=== PATIENT | female | born 1945 | race Caucasian/White ===

== ENCOUNTER 2024-06-23 15:16 | Inpatient (IN) | payer MEDICARE, BC, SELFPAY ==
[2024-06-23] VITALS (9 sets, daily range): BP systolic 126–174; BP diastolic 51–101; PULSE 61–73; RESP 16–18; TEMP 36.5; O2SAT 92–98; BMI 21.2; BMI 24.4
--- NOTE | 2024-06-23 15:18 | XRR_ITS ---
PROCEDURE INFORMATION: Exam: XR Chest Exam date and time: 06/23/2024 3:42 PM Age: 79 years old Clinical indication: Injury or trauma; Fall; Blunt trauma (contusions or hematomas) TECHNIQUE: Imaging protocol: Radiologic exam of the chest. Views: 2 views. COMPARISON: No relevant prior studies available. FINDINGS: Lungs: Minimal opacity in the lung bases may represent atelectasis or infiltrate. Minimal apical scarring. Pleural spaces: No evidence of a pneumothorax. Minimal blunting of the right costophrenic angle could suggest a small pleural effusion. Heart/Mediastinum: Normal size of the cardiac silhouette. Vasculature: There is atherosclerotic calcification within the aortic arch. Bones/joints: Scattered degenerative changes in the visualized spine. Partially imaged prior spinal fixation in the lumbar spine. XR/XR chest 2V* [id number] IMPRESSION: 1. Question small right pleural effusion. 2. Nonspecific linear areas of opacity in the lung bases could represent atelectasis or developing infiltrate. 3. Other chronic findings as above.
--- NOTE | 2024-06-23 15:30 | ECG_ITS ---
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: : 1945 Requested By: Cherie Hudson Order Number: [id number] Reading MD: CASSIE ROTH Measurements Intervals [place] Rate: 65 P: 69 TN: 203 QRS: 54 QRSD: 78 T: 66 QT: 403 QTc: 420 Interpretive Statements SINUS RHYTHM LOW QRS VOLTAGE IN PRECORDIAL LEADS [QRS DEFLECTION < 1.0 mV IN CHEST LEADS] POSSIBLE ANTERIOR MYOCARDIAL INFARCTION , PROBABLY OLD [30 ms Q WAVE IN V3/V4, OR R < 0.2 mV IN V4] No previous ECG available for comparison Electronically Signed On 06-24-2024 23:39:34 CDT by CASSIE ROTH [id number]
--- NOTE | 2024-06-23 17:06 | W.ED.FALL ---
HPI - Fall General: Chief Complaint: Fall Stated Complaint: fell, hit chest on nightstand Time Seen by Provider: 06/23/24 15:50 History of Present Illness: Patient was staying at hotel room, where the mattress was slightly off, when she rolled over to sit up yesterday am at 4am, she was off, due to the soft mattress, and fell forward from a lying position contusing her mid left sternum. She reports to the emergency room with increasing pain, difficulty taking deep breaths. No shortness of breath, chest pain. Associated symptoms-after fall: Reports chest pain (due to injury); Denies abdominal pain, confusion or headache(s) Related Data Allergies Allergy/AdvReac Type Severity Reaction Status Date / Time morphine Allergy ADR-Nausea Verified 06/23/24 15:34 ondansetron (From Zofran) Allergy ADR-Shakine Verified 06/23/24 15:34 ss Review of Systems General: Reports: 10 or more systems reviewed and unremarkable except in HPI and below Eyes: Denies: change in vision or blurry vision ENMT: Denies: tinnitus Card: Reports: chest pain (due to injury); Denies: dyspnea on exertion Resp: Denies: dyspnea, wheezing or chest congestion GI: Reports: nausea (due to pain); Denies: abdominal pain or vomiting Musc: Reports: muscle weakness; Denies: decrease in muscle mass or deformity Neuro: Denies: headache(s), numbness in extremities or confusion Endo: Denies: polyuria or tired all the time PFSH ED Supplemental [facility] Information: h/o hypothyroid, chronic pain; however does not use opioids on daily basis History of hardware in back x 8 surgeries. Physical Exam Const: COMMON NORMALS: patient oriented x3 HENMT: COMMON NORMALS: normocephalic and atraumatic HEAD & SCALP: normocephalic and atraumatic FACE & SINUS: normal facial exam Neck/C-Spine: COMMON NORMALS: full ROM and no lymphadenopathy Chest: COMMONS NORMALS: normal inspection of the chest (prior to palpation); negative for normal palpation of entire chest wall (pain on mid right and left of sternum) CHEST: Yes localized rib tenderness with anteroposterior compression (left of sternum) Location: 4th rib and Yes tenderness sternum (left 4th, right 5th rib) Resp: COMMON NORMALS: normal respiratory effort, No retractions and clear to auscultation bilaterally; negative for No use of accessory muscles EFFORT & INSPECTION: No able to speak in complete sentences, Yes symmetric chest movement, No abnormal respiratory pattern, No decreased respiratory effort and No grunting AUSCULTATION: clear to auscultation bilaterally GI: COMMON NORMALS: Normal to inspection, nondistended, normoactive bowel sounds present, Soft to palpation and non-tender PALPATION: Yes Soft to palpation : COMMON NORMALS: Yes no CVA tenderness BLADDER/KIDNEY EXAM: Yes no CVA tenderness Back/Pelvis: COMMON NORMALS: no CVA tenderness and thoracic and lumbar spine normal to inspection Extremity: COMMON NORMALS: normal to inspection and full ROM Neuro: COMMON NORMALS: patient oriented x3, CN's II-XII intact bilaterally and moves all extremities Psych: COMMON NORMALS: Normal thought process present ATTITUDE: Yes calm THOUGHT PROCESS: Normal thought process present JUDGEMENT: Good judgement present (Psych) OTHER: upon ambulation, screams in pain due to sternal pain Skin: COMMON NORMALS: no rashes or lesions noted and no wounds GENERAL SKIN EXAM: no rashes or lesions noted Course ED course: Patient is a 79-year-old female with notable sternal fracture on CT of the chest. This was caused after rolling into bedside table without fall. Injury was direct blow to bedside table next to bed at [facility]. This occurred yesterday early a.m. I am unable to get patient's pain in control. I am going to ask hospitalist for consultation for possible observation for pain control. I do not see any reason to discuss with trauma surgery/trauma services since patient has not had a trauma, and mainly needs pain control. Reevaluation(s): Reevaluation #1: 1929: Repeated fentanyl. Patient continues to have pain. Reevaluation #2: 2039: Ordered Percocet 10/325. Patient continues to have pain. Consultations: Consultation #1: D/w Hospitalist, admit inpt Vital Signs: Vital signs: Vital Signs Temperature 97.7 F 06/23/24 15:17 Pulse Rate 73 06/23/24 20:57 Respiratory Rate 16 06/23/24 20:57 Blood Pressure 158/91 06/23/24 20:57 Pulse Oximetry 96 06/23/24 20:57 Oxygen Delivery Me thod Room Air 06/23/24 18:11 MDM - Fall Medical Decision Making Patient is a pleasant 79-year-old female with history of hypothyroidism, on replacement, occasional back pain due to multiple hardware/back surgery x 8 that presents with severe left sternal chest discomfort related to a contusion in this exact spot. Initial chest x-ray is abnormal showing pleural effusion. I cannot discern fracture. Will expand workup to CT after routine labs to assess renal function. Will also check urine analysis to assess stability/association of pyuria. Patient was continuing to struggle with pain control despite fentanyl x 2. She was also given oxycodone 10/325 acetaminophen. Given these concerns, I did discuss with hospitalist on, Dr. Sen regarding pain control. Hospitalist would like her for inpatient, since they do not believe she would have pain control after overnight admission. Differential Diagnosis Likely compression fracture; Unlikely concussion with loss of consciousness or concussion without loss of consciousness Lab Data mildly low sodium, otherwise unremarkable 06/23/24 18:28 06/23/24 18:28 Radiology Impressions Chest X-Ray 06/23/24 15:18 IMPRESSION: 1. Question small right pleural effusion. 2. Nonspecific linear areas of opacity in the lung bases could represent atelectasis or developing infiltrate. 3. Other chronic findings as above. Chest CT 06/23/24 17:54 IMPRESSION: 1. Depressed fracture involving the anterior and posterior cortex of the mid body of the sternum with cortical break anteriorly and plastic fracture posteriorly. 2. Soft tissue contusion anterior to the mid sternal fracture. Laboratory Results WBC 7.81 10^3/uL (3.29-11.43) 06/23/24 18: RBC 4.02 10^6/uL (3.85-5.65) 06/23/24 18: Hgb 12.80 g/dL (11.27-16.99) 06/23/24 18: Hct 38.9 % (36-47) 06/23/24 18: MCV 96.8 fl (85-98) 06/23/24 18: MCH 31.8 pg (27-33) 06/23/24 18: MCHC 32.9 g/dL (30-55) 06/23/24 18: RDW 12.7 % (12.1-15.1) 06/23/24 18: Plt Count 196 10^3/cmm (157-399) 06/23/24 18: MPV 10.0 fL (7.4-10.4) 06/23/24 18: Neut % (Auto) 57.6 % 06/23/24 18: Lymph % (Auto) 28.0 % 06/23/24 18: Morrison % (Auto) 10.0 % 06/23/24 18: Eos % (Auto) 3.2 % 06/23/24 18: Baso % (Auto) 0.9 % 06/23/24 18: Neut # (Auto) 4.50 10^3/uL (1.8-7.7) 06/23/24 18: Lymph # (Auto) 2.2 10^3/uL (0.8-4.8) 06/23/24 18: Morrison # (Auto) 0.8 10^3/uL (0.2-0.9) 06/23/24 18: Eos # (Auto) 0.3 10^3/uL (0.0-0.8) 06/23/24 18: Baso # (Auto) 0.1 10^3/uL (0.0-0.1) 06/23/24: Nucleated RBC % (auto) 0 % 06/23/24 Nucleated RBCs # 0.0 /100WBC 06/23/24 18: Sodium 134 mmol/L (136-145) L 06/23/24: Potassium 3.9 mmol/L (3.5-5.1) 06/23/24: Chloride 99 mmol/L (98-107) 06/23/24 18: Carbon Dioxide 25 mmol/L (22-29) 06/23/24 18: Anion Gap 13.9 (5-19) 06/23/24 18: BUN 18 mg/dL (8-23) 06/23/24: Creatinine 0.7 mg/dL (0.5-0.9) 06/23/24 18: GFR Calculation Not Reportable 06/23/24 18 Glucose 89 mg/dL (65-115) 06/23/24 18: Calculated Osmolality 279 mOsm/kg (285-295) L 06/23/24 18:28 Calcium 9.0 mg/dL (8.5-10.5) 06/23/24 18: Total Bilirubin 0.3 mg/dL (0.15-1.2) 06/23/24 18:28 AST 18 U/L (0-32) 06/23/24 18: ALT 16 U/L (0-33) 06/23/24 18: Alkaline Phosphatase 69 U/L (35-105) 06/23/24 18: Total Protein 6.1 g/dL (6.6-8.7) L 06/23/24 18: Albumin 4.1 g/dL (3.5-5.2) 06/23/24 18: Globulin 2.0 g/dL (1.3-4.6) 06/23/24 18:28 Urine Color Yellow (Yellow) 06/23/24 18:07 Urine Appearance Clear (CLEAR) 06/23/24 18:07 Urine pH 6.5 (5-7) 06/23/24 18:07 Ur Specific [place] 1.012 (1.005-1.030) 06/23/24 18:07 Urine Protein Negative (Negative) 06/23/24 18:07 Urine Glucose (UA) Negative (Normal) 06/23/24 18:07 Urine Ketones Negative (Negative) 06/23/24 18:07 Urine Blood Negative (Negative) 06/23/24 18:07 Urine Nitrate Negative (Negative) 06/23/24 18:07 Urine Bilirubin Negative (Negative) 06/23/24 18:07 Urine Urobilinogen 0.2 mg/dL (Negative) 06/23/24 18:07 Ur Leukocyte Esterase Negative (Negative) 06/23/24 18:07 Urine RBC 0-2 /hpf (0-2) 06/23/24 18:07 Urine WBC 0-5 /hpf (0-5) 06/23/24 18:07 Ur Squamous Epith Cells 0-5 /hpf (0-5) 06/23/24 18:07 Amorphous Sediment Not Reportable 06/23/24 18:07 Urine Bacteria None seen /hpf (NONE) 06/23/24 18:07 Hyaline Casts 0-4 /lpf H 06/23/24 18:07 XR interpretation done by ED provider, pending radiology final review ED provider radiology interpretation(s): pleural effusion right, chronic changes ct sshows sternal fracture Discharge Plan Discharge Patient Disposition: Admitted As Inpatient Admit Provider: Magalie Li Clinical Impression: Sternal fracture Condition: Stable Coding Level of Care Code ED Sales And Service Officer for Terrance Harley
--- NOTE | 2024-06-23 17:54 | CTR_ITS ---
PROCEDURE INFORMATION: Exam: CT Chest With Contrast; Diagnostic Exam date and time: 06/23/2024 7:23 PM Age: 79 years old Clinical indication: Injury or trauma; Fall; Blunt trauma (contusions or hematomas); Additional info: Blunt chest trauma, abnormal xray TECHNIQUE: Imaging protocol: Diagnostic computed tomography of the chest with contrast. Radiation optimization: All CT scans at this facility use at least one of these dose optimization techniques: automated exposure control; mA and/or kV adjustment per patient size (includes targeted exams where dose is matched to clinical indication); or iterative reconstruction. Contrast material: OMNI 350; Contrast volume: 100 ml; Contrast route: INTRAVENOUS (IV); COMPARISON: CR XR chest 2V* [id number] 06/23/2024 3:42 PM RADIATION DOSE METRICS: Total DLP (mGy-cm): 208.02 FINDINGS: Lungs: Bibasilar discoid atelectasis and/or scarring. Pleural spaces: Bilateral apical pleural and/or parenchymal scarring. Heart: Unremarkable. No cardiomegaly. No pericardial effusion. Lymph nodes: Unremarkable. No enlarged lymph nodes. Vasculature: Calcification of the thoracic aorta and/or great vessels consistent with atherosclerotic vessel disease. Liver: Single hepatic cyst measuring > 1.0 cm. Bones/joints: Depressed fracture involving the anterior and posterior cortex of the mid body of the sternum with cortical break anteriorly and plastic fracture posteriorly. Soft tissues: Bilateral retropectoral saline breast implants. Soft tissue contusion anterior to the mid sternal fracture Other findings: Postoperative changes over the lumbar spine with metallic fixation and metallic artifact. CT/CT chest w con* [id number] IMPRESSION: 1. Depressed fracture involving the anterior and posterior cortex of the mid body of the sternum with cortical break anteriorly and plastic fracture posteriorly. 2. Soft tissue contusion anterior to the mid sternal fracture.
[2024-06-23] MEDS: fentaNYL 50 mcg/mL INJ 2mL IVP ×2 (18:03→19:39)
[2024-06-23 18:17] LABS: Bilirubin Urine Negative (Negative); Blood Urine Negative (Negative); Glucose Urine UA Negative (Normal); Ketones Urine Negative (Negative); Leukocyte Esterase Urine Negative (Negative); Nitrate Urine Negative (Negative); Protein Urine Negative (Negative); Specific Gravity, Urine 1.012 (1.005-1.030); Urine Appearance Clear (CLEAR); Urine Color Yellow (Yellow); Urobilinogen Urine 0.2 mg/dL (Negative); pH Urine 6.5 (5-7)
[2024-06-23 18:23] LABS: Add Urine Microscopic? YES; Bacteria Urine None Seen /hpf; Hyaline Casts Urine 0-4 /lpf; RBC Urine 0-2 /hpf (0-2); Squamous Epithelial Cell Urine 0-5 /hpf (0-5); WBC Urine 0-5 /hpf (0-5)
[2024-06-23 18:45] LABS: Basophils # 0.1 10^3/uL (0.0-0.1); Basophils % 0.9 %; Eosinophils # 0.3 10^3/uL (0.0-0.8); Eosinophils % 3.2 %; Hematocrit 38.9 % (36-47); Lymphocytes # 2.2 10^3/uL (0.8-4.8); Mean Corpuscular HGB Conc 32.9 g/dL (30-55); Mean Corpuscular Hemoglobin 31.8 pg (27-33); Mean Corpuscular Volume 96.8 fl (85-98); Monocytes # 0.8 10^3/uL (0.2-0.9); Neutrophils % 57.6 %; Nucleated Red Blood Cells % 0 %; Platelet Count 196 10^3/cmm (157-399); Red Blood Count 4.02 10^6/uL (3.85-5.65); Red Cell Distribution Width 12.7 % (12.1-15.1); White Blood Count 7.81 10^3/uL (3.29-11.43)
[2024-06-23 19:13] LABS: Alanine Aminotransferase 16 U/L (0-33); Albumin Level 4.1 g/dL (3.5-5.2); Alkaline Phosphatase 69 U/L (35-105); Anion Gap 13.9 (5-19); Aspartate Amino Transferase 18 U/L (0-32); Blood Urea Nitrogen 18 mg/dL (8-23); Carbon Dioxide 25 mmol/L (22-29); Chloride 99 mmol/L (98-107); Creatinine Clr Calc Pharmacy 47.9004; Glucose 89 mg/dL (65-115); Osmolality Calculated 279 mOsm/kg (285-295); Potassium 3.9 mmol/L (3.5-5.1); Sodium 134 mmol/L (136-145); Total Bilirubin 0.3 mg/dL (0.15-1.2); Total Protein 6.1 g/dL (6.6-8.7)
[2024-06-23] MEDS: iohexol 350 mg/mL 500 mL Btl (per mL) IV (19:30)
[2024-06-23] MEDS: diphenhydrAMINE 50 mg/mL SDV 1mL 12.5 MG IVP (19:42)
[2024-06-23] MEDS: oxyCODONE-APAP 10-325 mg Tablet 1 TAB PO (20:56)
--- NOTE | 2024-06-23 21:01 | P.HP_ITS ---
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 The patient lives in [facility]. She & her were travelling from [place], [place] to [place] to see family (children and grand children), who live in [place]. She spent the night in a motel in [place]. She states that around 4am, she had to get out of bed really fast b/c she had a Charley horse. As she tried to get out of bed, the mattress became nothing and pushed her into the corner of the night stand, which was pointy, such that she screamed. She states that they arrived at [place] around 3pm on 06/23/2024, but the pain in her chest worsened throughout the day so she came in. SHe states that she thinks that she normally gets Charley horses b/c she has been exercising her legs to regain her strength since, she has had 5 back surgeries in the last 4.5yrs. In the ED, her CXR showed concern for a possible small R. Pleural effusion, with concern for atelectasis vs infiltrate in the lung bases. A CT chest with IV contrast was done that showed a fracture in the sternum. The patient was given fentanyl 50 mcg x 2, Benadryl 12.5 mg IVP x 1, and admitted for intractable pain. Review of Systems 2 Const: Reports: diaphoresis; Denies: fever(s) or chills Eyes: Denies: change in vision ENMT: Denies: odynophagia, ear or mastoid pain, ear discharge, nasal discharge or nasal congestion Card: Reports: lightheadedness; Denies: chest pain, palpitations or syncope Resp: Denies: dyspnea, productive cough or wheezing GI: Reports: nausea (due to opiates) and constipation (chronic); Denies: abdominal pain, vomiting, diarrhea, change in stool character or hematochezia : Reports: urinary urgency (chronic 5 years); Denies: urinary frequency Musc: Reports: joint pain (sternal pain) Skin/Breast: Denies: rash or new lesions Neuro: Denies: headache(s) or dizziness Psych: Denies: anxiety, depression, suicidal ideation or homicidal ideation Endo: Reports: cold intolerance; Denies: heat intolerance Enrike/Lymph: Denies: easy bruising or easy bleeding Medications/Allergies Allergies Allergy/AdvReac Type Severity Reaction Status Date / Time morphine Allergy ADR-Nausea Verified 06/23/24 15:34 ondansetron (From Zofran) Allergy ADR-Shakine Verified 06/23/24 15:34 ss oxycodone Allergy ADR-Nausea Verified 06/24/24 02:08 PFSH Acute 2 PFSH: Medical History (Updated 06/24/24 @ 07:01 by Magalie Li MD) Hearing loss of both ears L>R hearing loss due to repeated childhood ear infections. 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 S/p laser surgery which improved her hearing, but she wears hearing aids. Surgical History (Updated 06/24/24 @ 01:44 by Magalie Li MD) History of surgery on lower extremity Left quadricep tendon repair due to tear. History of total right knee replacement Hx of appendectomy History of hysterectomy with bilateral oophorectomy done in 3 stages. Hysterectomy was done first because it was tipped. . ovary was removed due to cyst in 2nd stage. remaining ovary removed in 3rd stage. 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 Family History (Updated 06/24/24 @ 01:51 by Magalie Li MD) Mother Congestive heart failure (CHF) Social History (Updated 06/24/24 @ 01:47 by Magalie Li MD) Smoking and tobacco/nicotine status: former use of tobacco/nicotine Alcohol intake: current Alcohol intake frequency: holidays/special occasions only Substance/Drug Use: current Substance/Drug use frequency: other Other substance/drug use details: tried THC once. Additional social history: smoked 1ppd from age 18 for 15 years. Vitals/I&O/Wt Last Vital Signs Temp 97.7 F 06/23/24 15:17 Pulse 73 06/23/24 20:57 Resp 16 06/23/24 20:57 BP 158/91 06/23/24 20:57 Pulse Ox 96 06/23/24 20:57 O2 Del Method Room Air 06/23/24 18:11 06/23/24 06/23/24 06/23/24 06:59 14:59 22:59 Intake Total 0 / 0 Balance 0 / 0 Weight last 48 hrs Weight 54.431 kg Physical Exam 2 Const: GENERAL APPEARANCE: cooperative and comfortable O RIENTATION/CONSCIOUSNESS: Yes awake, Yes oriented to person, Yes oriented to place and Yes oriented to time HENMT: HEAD & SCALP: normocephalic and atraumatic NOSE: Normal external nose present EXTERNAL EAR: Yes external ears normal MOUTH: Normal oral and palatal mucosa present THROAT: posterior oropharynx normal Eye: CONJUNCTIVA: Yes conjunctivae normal PUPIL: No Equal, round and reactive pupils present EOM: No EOM abnormal Neck/C-Spine: GENERAL: Yes normal visual inspection and Yes trachea midline THYROID: Thyroid normal CAROTIDS: No bruit CERVICAL SPINE: Yes cervical ROM normal Lymph: OTHER: no cervical or supraclavicular LAD Resp: OTHER: CTAB w/ no w/r/r. pleuritic chest pain on deep inspiration. Cardio: OTHER: RRR, no m/r/g or clicks. Placing the stethoscope on her RUSB, her LUSB and LLSB caused chest pain. GI: OTHER: BS+, NT, ND, no guarding, no rigidity, no rebound tenderness, no hepatosplenomegaly. Extremity: GENERAL: No clubbing, No cyanosis and No edema Neuro: CRANIAL NERVES: Yes CN normal except as noted SPEECH: speech normal GAIT: Yes Normal gait present (I saw her walk to the bathroom. ) SENSORY EXAM: No sensory level loss detected MOTOR EXAM: 5/5 motor strength present throughout and Normal motor muscle tone present throughout Psych: APPEARANCE: Yes grossly normal ATTITUDE: Yes calm and Yes engaged SPEECH: Yes normal speech MOOD & AFFECT: Yes euthymic mood THOUGHT PROCESS: Normal thought process present THOUGHT CONTENT: Yes Normal thought content present ATTENTION/CONCENTRATION: Yes attention grossly intact M BREANN/COGNITION: Yes memory grossly intact Skin: GENERAL SKIN EXAM: no rashes or lesions noted Data 06/24/24 04:47 06/24/24 04:47 A&P Assessment and plan (1) Sternal fracture: (2) Intractable pain: Plan Mirna Post is a 79 year old female w/ 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 The patient sustained a fracture in her sternum as noted on CT Chest w/ IV contrast. #Intractable pain due to Fracture of the Sternum - She responded well to the dose of Dilaudid but sleeps easily. [place] ordered as well as antiemetics. Continues to monitor pain levels. Counseled patient not to let her pain get to attend before asking for pain medications. - Consider consulting or speaking with anesthesiologist on-call, to see if it is possible for the patient to benefit from an anesthetic bupivacaine etc. - 1L NS @ 250cc/hr administered on admission. Continued w/ NS at 75cc/hr. #Fracture of the sternum #Fall - Defer to day hospitalist to Consult Orthopedic surgery - incentive spirometry. #Chronic constipation - Miralax and senna scheduled. DVT ppx: Lovenox PDMP PDMP Reviewed: Not Reviewed Attestations 2 Medical Necessity Statement*: The patient will need to be hospitalized for greater than 2 midnights for pain control due to intractable pain caused by a fall that resulted in an acute fracture of the sternum. Coding Level of Care Code 47954 High Time for a total of 76 minutes, includes reviewing past or interval history, examining/interviewing patient, placing orders, counseling patient/family/other support, updating patient/family/other support, discussing plan of care with staff, communicating with other healthcare providers, documenting encounter and coordinating care Diagnoses Sternal fracture S22.22XA Encounter type: initial encounter Fracture type: closed Sternal location: body of sternum Intractable pain R52
[2024-06-23 23:11] LABS: INR 0.93 (0.8-1.2); Partial Thromboplastin Time 24.7 SECONDS (23.9-36.7)
[2024-06-23] MEDS: sodium chloride 0.9% 1,000 ML 65 ML IV (23:11)
--- NOTE | 2024-06-23 23:35 | PC.NURSE ---
Report called to Lucy MATHIAS on MS. All questions and concerns were addressed at time of report.
[2024-06-24] VITALS (8 sets, daily range): BP systolic 121–140; BP diastolic 56–78; PULSE 59–75; RESP 13–18; TEMP 36.6–36.8; O2SAT 91–94
[2024-06-24] MEDS: HYDROmorphone 0.5 MG/0.5 ML INJ IVP ×2 (00:37→09:55)
[2024-06-24] MEDS: HYDROcodone-acetaminophen 5-325 mg Tablet 1 TAB PO ×2 (05:10→09:12)
[2024-06-24 05:17] LABS: Basophils # 0.1 10^3/uL (0.0-0.1); Basophils % 0.9 %; Eosinophils # 0.2 10^3/uL (0.0-0.8); Eosinophils % 2.9 %; Hematocrit 34.2 % (36-47); Lymphocytes # 1.6 10^3/uL (0.8-4.8); Lymphocytes % 23.4 %; Mean Corpuscular HGB Conc 32.5 g/dL (30-55); Mean Corpuscular Hemoglobin 32.5 pg (27-33); Mean Platelet Volume 9.9 fL (7.4-10.4); Monocytes # 0.9 10^3/uL (0.2-0.9); Monocytes % 13.4 %; Neutrophils # 4.03 10^3/uL (1.8-7.7); Neutrophils % 59.3 %; Nucleated Red Blood Cells % 0 %; Platelet Count 171 10^3/cmm (157-399); Red Blood Count 3.42 10^6/uL (3.85-5.65); Red Cell Distribution Width 12.9 % (12.1-15.1)
[2024-06-24 05:38] LABS: Anion Gap 14.1 (5-19); Blood Urea Nitrogen 14 mg/dL (8-23); Calcium 8.4 mg/dL (8.5-10.5); Carbon Dioxide 22 mmol/L (22-29); Chloride 106 mmol/L (98-107); Creatinine Clr Calc Pharmacy 50.8404; Glucose 101 mg/dL (65-115); Magnesium 1.8 mg/dL (1.7-2.3); Osmolality Calculated 287 mOsm/kg (285-295); Phosphorus 3.6 mg/dL (2.5-4.5); Potassium 4.1 mmol/L (3.5-5.1); Sodium 138 mmol/L (136-145)
[2024-06-24] MEDS: sodium chloride 0.9% 1,000 ML 75 ML IV (06:01)
[2024-06-24] MEDS: sennosides 8.6 mg Tablet 17.2 MG PO (09:12)
[2024-06-24] MEDS: polyethylene glycol 3350 Pkt 17 gm PO (09:12)
[2024-06-24] MEDS: prochlorperazine 10 mg Tablet PO ×3 (09:55→19:10)
--- NOTE | 2024-06-24 11:10 | PC.CHAP ---
Pastoral Care Encounter/Spiritual Assessment Type of Contact [] Declined tire rebuilder visit [] Patient/Family/Request visit [] Outpatient visit [] Follow-up visit [] Physician referral [] Code/Alert [x] Routine visit [] Staff referral [] Actively dying [] Patient sleeping [x] Family support [] [] Out of room [] Palliative care [] [] Receiving care in room [] Pre-surgical visit [] Trauma [] Long length of stay [] ICU visit [] Other: Relational/Emotional Strength [x] Patient feels connected with others/family/visitors/staff [] Distress [] Loneliness/isolation [] Abandonment Spirituality of Patient [x] Person of Mai [] Attends Scientology of their Mai [x] Believes in Prayer [] Reads Bible or Rastafarian materials [] There are Spiritual issues to be addressed Intermediate Card Tender Interventions [x] Prayer [] Active listening [] Non-anxious presence [x] Spiritual/emotional support [] Crisis/trauma care [] Spiritual counseling [] Bereavement support [] Provided bereavement packet [] Provided Bible/devotional materials [] Provided toy/stuffed animal, coloring book to patient or family member [] Provided Communion [] Anointing/[place] [] Salvation [x] Completed spiritual assessment [] Other: Impact on Illness or Injury [] Angry [] Fearful [] Anxious [] Often cries [] Exhaustion [] Unable to work [] Unable to attend caodaism [] Unable to walk/stand [] Unable to read [] Unable to drive [] Unable to eat/drink [] Unable to sleep [] Unable to be with family [] Patient intubated [] Other: Summary Time spent with patient 5 min
[2024-06-24] MEDS: lactulose oral liq 20 gm/30 mL UDC 30 GM PO (12:06)
[2024-06-24] MEDS: lidocaine 5% Patch 1 PATCH TOPICAL (12:27)
[2024-06-24] MEDS: ketorolac 30 mg/mL INJ 15 MG IVP ×2 (12:28→18:28)
[2024-06-24] MEDS: HYDROmorphone 0.5 MG/0.5 ML INJ 1 MG IVP ×3 (14:27→23:20)
--- NOTE | 2024-06-24 14:27 | USCV_ITS ---
Mirna Post Age: 79 Gender: F : 1945 Exam Date: 06/24/2024 15:11 Ordering Phys: Jocelyne Duvall MD Technologist: [place] [facility] [place] chest trauma fx stermum BP: 123 / 73 HR: 67 Rhythm: Sinus Technical Quality: Adequate MEASUREMENTS (Male / Female) Normal Values 2D ECHO LV Diastolic Diameter PLAX 3.4 cm 4.2 - 5.9 / 3.9 - 5.3 cm IVS Diastolic Thickness 1.1 cm 0.6 - 1.0 / 0.6 - 0.9 cm IVS Systolic Thickness 1.4 cm LVPW Diastolic Thickness 1.2 cm 0.6 - 1.0 / 0.6 - 0.9 cm LVPW Systolic Thickness 1.6 cm LVOT Diameter 2.0 cm LV Ejection Fraction 2D Teich 65.3 % LV Ejection Fraction MOD 4C 67.8 % LV Ejection Fraction MOD 2C 58.9 % LV Ejection Fraction 2C AL 57.1 % LA Diameter 2.7 cm RA Systolic Volume 4C AL 26.6 ml RA Systolic Volume 4C MOD 25.5 ml Aorta at Sinotubular Diameter 2.7 cm M-MODE LA Ao Ratio MM 1.0 AV Cusp Separation MM 2.0 cm DOPPLER AV Peak Velocity 112.0 cm/s LVOT Peak Velocity 97.0 cm/s AV Area Cont Eq vti 3.0 cm squared AV Area Cont Eq pk 2.8 cm squared MV Peak Velocity 90.0 cm/s MV Area PHT 5.5 cm squared Mitral E to A Ratio 0.9 TV Peak Velocity 171.5 cm/s TR Peak Velocity 186.0 cm/s TR Peak Gradient 13.8 mmHg TV Peak E Velocity 106.0 cm/s PV Peak Velocity 85.0 cm/s FINDINGS Left Ventricle Normal left ventricular size, systolic function and wall thickness, with no regional wall motion abnormalities. Left ventricular ejection fraction is estimated at 60 %. Grade I/IV diastolic dysfunction (abnormal relaxation filling pattern), normal to mildly elevated filling pressures. Right Ventricle The right ventricle is normal in size and function. Right Atrium The right atrium is normal in size. Left Atrium The left atrium is normal in size. Mitral Valve Mildly thickened mitral valve. No mitral valve stenosis. Trace mitral valve regurgitation. Aortic Valve Structurally normal aortic valve without significant sclerosis or stenosis. There is trace aortic regurgitation. Tricuspid Valve Structurally normal tricuspid valve without significant stenosis or regurgitation. Pulmonary artery systolic pressure is normal. Pulmonic Valve Mild pulmonary valve regurgitation. Pericardium Normal pericardium without effusion. Aorta Normal ascending aorta dimension. IVC The inferior vena cava appears normal. CONCLUSIONS Normal left ventricular size, systolic function and wall thickness, with no regional wall motion abnormalities. Left ventricular ejection fraction is estimated at 60 %. Grade I/IV diastolic dysfunction (abnormal relaxation filling pattern), normal to mildly elevated filling pressures. Mildly thickened mitral valve. No mitral valve stenosis. Trace mitral valve regurgitation. Structurally normal aortic valve without significant sclerosis or stenosis. There is trace aortic regurgitation. There is no pericardial effusion. Right atrial pressure is around 5 mm of mercury. Oksana Mendoza MD (Electronically Signed) Final Date: 24 Jun 2024 21:07 S
--- NOTE | 2024-06-24 14:53 | P.PN_ITS ---
Subjective 2 Subjective: Present H&P reviewed. Patient states she hurt her chest wall after she hit it against the corner of a nightstand in her hotel room. Pain is not well- controlled today. Medications: Reviewed: Yes Vitals/I&O/Wt Last Vital Signs Temp 98 F 06/24/24 11:50 Pulse 67 06/24/24 14:41 Resp 17 06/24/24 11:50 BP 129/74 06/24/24 14:41 Pulse Ox 94 06/24/24 11:50 O2 Del Method Room Air 06/24/24 11:50 06/23/24 06/24/24 06/24/24 22:59 06:59 14:59 Intake Total 0 / 0 1120.000 / 1120.000 680 / 680 Balance 0 / 0 1120.000 / 1120.000 680 / 680 Weight last 48 hrs Weight 60.328 kg Weight 62.596 kg Weight 54.431 kg Physical Exam 2 Narrative: General: No acute distress, AO x3 HEENT: PERRLA, pupils bilaterally equal and reactive, pallors not present Chest: Normal vesicular breath sounds, no added sounds, equal good air entry bilaterally CVS: S1-S2 regular, no murmurs, no tachycardia, no gallops, no rubs Abdomen: Soft, nontender, no organomegaly, bowel sounds present Neuro: No focal deficits, no facial deformity, AO x3, power 5/5 in all limbs Data 06/24/24 04:47 06/24/24 04:47 A&P Assessment and plan (1) Sternal fracture: (2) Intractable pain: Plan Mirna Post is a 79 year old female w/ 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 The patient sustained a fracture in her sternum as noted on CT Chest w/ IV contrast. #Intractable pain due to Fracture of the Sternum - She responded well to the dose of Dilaudid but sleeps easily. [place] ordered as well as antiemetics. Continues to monitor pain levels. Counseled patient not to let her pain get to attend before asking for pain medications. - Consider consulting or speaking with anesthesiologist on-call, to see if it is possible for the patient to benefit from an anesthetic bupivacaine etc. - 1L NS @ 250cc/hr administered on admission. Continued w/ NS at 75cc/hr. #Fracture of the sternum #Fall - Defer to day hospitalist to Consult Orthopedic surgery - incentive spirometry. #Chronic constipation - Miralax and senna scheduled. DVT ppx: Lovenox June 24, 2024 Overnight labs and H&P reviewed. Patient is traveling through this area to visit her children. She lives in [place]. She was in a hotel where she fell and hit her chest wall against the nightstand. CT of the chest shows D epressed fracture involving the anterior and posterior cortex of the mid body of the sternum with cortical break anteriorly and plastic fracture posteriorly. Soft tissue contusion anterior to the mid sternal fracture. Case was discussed with orthopedics on-call, no surgical intervention indicated for now. Patient is not amenable to any splinting. Medical management with pain control recommended as the fracture heals over the next 12 weeks. Currently pain is not under control. We do not have the capability to do inpatient nerve blocks with anesthesia as an inpatient. Currently will optimize pain management with Dilaudid 1 mg IV every 4 hours as needed, hydrocodone APAP 1 tab p.o. every 4 hours as needed, closely monitor for any respiratory depression.. Additionally apply lidocaine patch and add opiate sparing therapy with Toradol 15 mg IV every 6 hours. Patient states she has taken oxycodone in the past and tolerated it well with her back surgeries. Echocardiogram to rule out any underlying pericardial contusion or effusions. Resume home dose of levothyroxine PDMP PDMP Reviewed: Not Reviewed Attestations 2 Medical Necessity Statement*: Uncontrolled pain resulting from sternal fracture. Needs optimization of pain medications Coding Level of Care Code Acute Code for Chg Fwd Diagnoses Sternal fracture S22.22XA Encounter type: initial encounter Fracture type: closed Sternal location: body of sternum Intractable pain R52
[2024-06-24 15:51] LABS: Troponin T (5th) Once 8 ng/L (0-10)
[2024-06-24] MEDS: enoxaparin 30 mg/0.3 mL Syringe SUBCUT (19:59)
[2024-06-25 01:33] VITALS: BP 124/64; PULSE 76; RESP 15; TEMP 36.6; O2SAT 94
[2024-06-25 05:29] VITALS: BP 139/71; PULSE 70; RESP 16; TEMP 36.7; O2SAT 93
[2024-06-25 05:42] LABS: Basophils # 0.1 10^3/uL (0.0-0.1); Basophils % 1.2 %; Eosinophils # 0.3 10^3/uL (0.0-0.8); Eosinophils % 4.8 %; Hematocrit 37.2 % (36-47); Lymphocytes % 29.8 %; Mean Corpuscular Hemoglobin 32.3 pg (27-33); Mean Corpuscular Volume 101.1 fl (85-98); Mean Platelet Volume 10.1 fL (7.4-10.4); Monocytes # 0.9 10^3/uL (0.2-0.9); Monocytes % 13.4 %; Neutrophils # 3.41 10^3/uL (1.8-7.7); Neutrophils % 50.7 %; Nucleated Red Blood Cells % 0 %; Platelet Count 145 10^3/cmm (157-399); Red Blood Count 3.68 10^6/uL (3.85-5.65); Red Cell Distribution Width 13.2 % (12.1-15.1); White Blood Count 6.72 10^3/uL (3.29-11.43)
[2024-06-25 06:00] LABS: Alanine Aminotransferase 14 U/L (0-33); Albumin Level 3.4 g/dL (3.5-5.2); Alkaline Phosphatase 62 U/L (35-105); Anion Gap 11.4 (5-19); Aspartate Amino Transferase 22 U/L (0-32); Blood Urea Nitrogen 12 mg/dL (8-23); Calcium 8.9 mg/dL (8.5-10.5); Carbon Dioxide 26 mmol/L (22-29); Chloride 103 mmol/L (98-107); Creatinine Clr Calc Pharmacy 50.0237; Globulin 2.3 g/dL (1.3-4.6); Glucose 90 mg/dL (65-115); Osmolality Calculated 281 mOsm/kg (285-295); Potassium 4.4 mmol/L (3.5-5.1); Sodium 136 mmol/L (136-145); Total Bilirubin 0.4 mg/dL (0.15-1.2); Total Protein 5.7 g/dL (6.6-8.7)
[2024-06-25 08:02] VITALS: BP 154/77; PULSE 75; RESP 18; TEMP 36.6; O2SAT 91
[2024-06-25 08:42] VITALS: BP 154/77; PULSE 75; RESP 18; TEMP 36.6
--- NOTE | 2024-06-25 09:05 | DCPLANNER ---
Awaiting meds to beds and outpatient pharmacy made aware at [phone].
[2024-06-25] MEDS: lidocaine 5% Patch 1 PATCH TOPICAL (09:23)
[2024-06-25] MEDS: polyethylene glycol 3350 Pkt 17 gm PO (09:24)
[2024-06-25] MEDS: sennosides 8.6 mg Tablet 17.2 MG PO (09:24)
[2024-06-25] MEDS: levothyroxine 25 mcg Tablet PO (09:24)
[2024-06-25] MEDS: ketorolac 30 mg/mL INJ 15 MG IVP (09:24)
[2024-06-25 11:24] VITALS: BP 144/78; PULSE 69; RESP 17; TEMP 36.7; O2SAT 91
[2024-06-25 12:54] VITALS: BP 144/78; PULSE 69; RESP 17; TEMP 36.7; O2SAT 91
--- NOTE | 2024-06-25 16:06 | PM.DCS ---
Discharge Providers Date of Admission: 06/23/24 21:46 Date of Discharge: June 25, 2024 Attending Provider at Admission: Magalie Li MD Attending Provider at Discharge: Jocelyne Duvall MD Diagnoses at Discharge Discharge Diagnosis (1) Sternal fracture: Status: Acute Qualifiers: Encounter type: initial encounter Fracture type: closed Sternal location: body of sternum Qualified Code(s): S22.22XA - Fracture of body of sternum, initial encounter for closed fracture (2) Intractable pain: Status: Acute Reason for Visit Reason for Visit: fell, hit chest on nightstand Hospital Course Hospital Course Patient is a 79-year-old lady traveling through this area to visit her children. She lives in [place]. She was in a hotel where she had a mechanical fall and hit her chest wall against the nightstand. CT of the chest showed Depressed fracture involving the anterior and posterior cortex of the mid body of the sternum with cortical break anteriorly and plastic fracture posteriorly. Soft tissue contusion anterior to the mid sternal fracture. Case was discussed with orthopedics on-call, no surgical intervention indicated for now. area not amenable to any splinting. Medical management with pain control recommended as the fracture heals over the next 12 weeks. While inpatient she received doses of IV Dilaudid, hydrocodone APAP, IV Toradol and lidocaine patch. Her pain is better today though still persistent if any dose of opiates or is missed. She has been transition to oxycodone APAP as she states that she has tolerated oxycodone well in the past, also given additional ibuprofen as an opiate sparing option and local lidocaine patches. Echocardiogram was performed to rule out any underlying pericardial contusion or effusions. Troponin was unremarkable. Patient is recommended to return home to closely follow-up with her PCP and orthopedic physician in [place]. Instructed to present to the nearest emergency room in case of worsening dyspnea, uncontrolled pain, or fever more than 101 Fahrenheit. Physical Exam Narrative: General: No acute distress, AO x3 HEENT: PERRLA, pupils bilaterally equal and reactive, pallors not present Chest: Normal vesicular breath sounds, no added sounds, equal good air entry bilaterally CVS: S1-S2 regular, no murmurs, no tachycardia, no gallops, no rubs Abdomen: Soft, nontender, no organomegaly, bowel sounds present Neuro: No focal deficits, no facial deformity, AO x3, power 5/5 in all limbs Discharge Data Studies Completed and Pending Completed Studies During Hospitalization Category Date Time Status CT chest w con* [id number] Stat Cat Scan 06/23/24 17:54 Completed XR chest 2V* [id number] Stat Exams 06/23/24 15:18 Completed CV. echo complete* [id number] Routine Ultrasound 06/24/24 14:27 Completed Radiology Impressions Chest X-Ray 06/23/24 15:18 IMPRESSION: 1. Question small right pleural effusion. 2. Nonspecific linear areas of opacity in the lung bases could represent atelectasis or developing infiltrate. 3. Other chronic findings as above. Chest CT 06/23/24 17:54 IMPRESSION: 1. Depressed fracture involving the anterior and posterior cortex of the mid body of the sternum with cortical break anteriorly and plastic fracture posteriorly. 2. Soft tissue contusion anterior to the mid sternal fracture. Laboratory Results WBC 6.72 10^3/uL (3.29-11.43) 06/25/24 04:20 RBC 3.68 10^6/uL (3.85-5.65) L 06/25/24 04:20 Hgb 11.90 g/dL (11.27-16.99) 06/25/24 04:20 Hct 37.2 % (36-47) 06/25/24 04:20 MCV 101.1 fl (85-98) H 06/25/24 04:20 MCH 32.3 pg (27-33) 06/25/24 04:20 MCHC 32.0 g/dL (30-55) 06/25/24 04:20 RDW 13.2 % (12.1-15.1) 06/25/24 04:20 Plt Count 145 10^3/cmm (157-399) L 06/25/24 04:20 MPV 10.1 fL (7.4-10.4) 06/25/24 04:20 Neut % (Auto) 50.7 % 06/25/24 04:20 Lymph % (Auto) 29.8 % 06/25/24 04:20 [place] % (Auto) 13.4 % 06/25/24 04:20 Eos % (Auto) 4.8 % 06/25/24 04:20 Baso % (Auto) 1.2 % 06/25/24 04:20 Neut # (Auto) 3.41 10^3/uL (1.8-7.7) 06/25/24 04:20 Lymph # (Auto) 2.0 10^3/uL (0.8-4.8) 06/25/24 04:20 [place] # (Auto) 0.9 10^3/uL (0.2-0.9) 06/25/24 04:20 Eos # (Auto) 0.3 10^3/uL (0.0-0.8) 06/25/24 04:20 Baso # (Auto) 0.1 10^3/uL (0.0-0.1) 06/25/24 04:20 Nucleated RBC % (auto) 0 % 06/25/24 04:20 Nucleated RBCs # 0.0 /100WBC 06/25/24 04:20 PT 13.20 SECONDS (12.1-14.9) 06/23/24 22:39 INR 0.93 (0.8-1.2) 06/23/24 22:39 APTT 24.7 SECONDS (23.9-36.7) 06/23/24 22:39 Sodium 136 mmol/L (136-145) 06/25/24 04:20 Potassium 4.4 mmol/L (3.5-5.1) 06/25/24 04:20 Chloride 103 mmol/L (98-107) 06/25/24 04:20 Carbon Dioxide 26 mmol/L (22-29) 06/25/24 04:20 Anion Gap 11.4 (5-19) 06/25/24 04:20 BUN 12 mg/dL (8-23) 06/25/24 04:20 Creatinine 0.7 mg/dL (0.5-0.9) 06/25/24 04:20 GFR Calculation Not Reportable 06/25/24 04:20 Glucose 90 mg/dL (65-115) 06/25/24 04:20 Calculated Osmolality 281 mOsm/kg (285-295) L 06/25/24 04:20 Calcium 8.9 mg/dL (8.5-10.5) 06/25/24 04:20 Phosphorus 3.6 mg/dL (2.5-4.5) 06/24/24 04:47 Magnesium 1.8 mg/dL (1.7-2.3) 06/24/24 04:47 Total Bilirubin 0.4 mg/dL (0.15-1.2) 06/25/24 04:20 AST 22 U/L (0-32) 06/25/24 04:20 ALT 14 U/L (0-33) 06/25/24 04:20 Alkaline Phosphatase 62 U/L (35-105) 06/25/24 04:20 Troponin T 5th Gen ng/L 8 ng/L (0-10) 06/24/24 04:47 Total Protein 5.7 g/dL (6.6-8.7) L 06/25/24 04:20 Albumin 3.4 g/dL (3.5-5.2) L 06/25/24 04:20 Globulin 2.3 g/dL (1.3-4.6) 06/25/24 04:20 Urine Color Yellow (Yellow) 06/23/24 18:07 Urine Appearance Clear (CLEAR) 06/23/24 18:07 Urine pH 6.5 (5-7) 06/23/24 18:07 Ur Specific [place] 1.012 (1.005-1.030) 06/23/24 18:07 Urine Protein Negative (Negative) 06/23/24 18:07 Urine Glucose (UA) Negative (Normal) 06/23/24 18:07 Urine Ketones Negative (Negative) 06/23/24 18:07 Urine Blood Negative (Negative) 06/23/24 18:07 Urine Nitrate Negative (Negative) 06/23/24 18:07 Urine Bilirubin Negative (Negative) 06/23/24 18:07 Urine Urobilinogen 0.2 mg/dL (Negative) 06/23/24 18:07 Ur Leukocyte Esterase Negative (Negative) 06/23/24 18:07 Urine RBC 0-2 /hpf (0-2) 06/23/24 18:07 Urine WBC 0-5 /hpf (0-5) 06/23/24 18:07 Ur Squamous Epith Cells 0-5 /hpf (0-5) 06/23/24 18:07 Amorphous Sediment Not Reportable 06/23/24 18:07 Urine Bacteria None seen /hpf (NONE) 06/23/24 18:07 Hyaline Casts 0-4 /lpf H 06/23/24 18:07 Vitals Last Vital Signs Temp 98.1 F 06/25/24 12:54 Pulse 69 06/25/24 12:54 Resp 17 06/25/24 12:54 BP 144/78 06/25/24 12:54 Pulse Ox 91 06/25/24 12:54 O2 Del Method Room Air 06/25/24 11:24 Discharge Plan Discharge Patient Disposition: Home Condition: Stable Prescriptions: New polyethylene glycol 3350 17 gram Powder In Packet 17 g PO DAILY 10 Days Qty: 0 0RF prochlorperazine maleate 10 mg Tablet 10 mg PO Q4H PRN (Reason: Nausea) 10 Days Qty: 30 0RF lidocaine 5 % Adhesive Patch,Medicated 1 patch topical [id number] 10 Days Qty: 10 0RF oxycodone-acetaminophen 5-325 mg tablet 1 tab PO Q6H PRN (Reason: pain) 5 Days Qty: 20 0RF pantoprazole [Protonix] 40 mg tablet,delayed release (DR/EC) 40 mg PO DAILY 28 Days Qty: 30 0RF ibuprofen 600 mg tablet 600 mg PO Q8H PRN (Reason: pain) 5 Days Qty: 15 0RF Continued tramadol 50 mg tablet 50 mg PO PRN PRN (Reason: Pain) levothyroxine 25 mcg tablet 25 mcg PO DAILY Discharge Orders: Discharge Order (Routine); Ordered 06/25/24 Ordered By: Jocelyne Duvall Referrals: Primary care provider [Other] Referral Note: Please make a follow up with you PCP Discharge Diet: Usual diet Discharge Activity: Resume usual activity Patient Instructions: Oxycodone/Acetaminophen (By mouth), Prochlorperazine (By mouth), Lidocaine (On the skin), Pantoprazole (By mouth), Polyethylene Glycol 3350 (By mouth), Pain Management in Older Adults (DC), Sternal Precautions (GEN), Opioid Safety Discharge Attestations Time Spent in Discharge Care*: greater than 30 min Quality Metrics Clinical Quality Measures [ No reported AMI, CVA or VTE this stay] Coding Level of Care Code Acute Code for Chg Fwd Diagnoses Sternal fracture S22.22XA Encounter type: initial encounter Fracture type: closed Sternal location: body of sternum Intractable pain R52
== END 2024-06-25 12:55 | disposition home or self-care (01) | DRG 566 ==
LOC: ER 20:54 → ER IP 21:54 → MEDSURG 23:12
PROVIDERS: Admitting Provider Internal Medicine; Emergency Provider Physician Assistant; Visit Provider Student in an Organized Health Care Education/Training Program
DX: S22.22XA Fracture of body of sternum, initial encounter for closed fracture (principal); W01.190A Fall on same level from slipping, tripping and stumbling with subsequent striking against furniture, initial encounter; E03.9 Hypothyroidism, unspecified; G89.29 Other chronic pain; R82.81 Pyuria; H91.93 Unspecified hearing loss, bilateral; K59.09 Other constipation; Z97.4 Presence of external hearing-aid; Z87.891 Personal history of nicotine dependence
CPT/HCPCS: 36415; 71046; 71260; 80048; 80053; 81001; 83735; 84100; 84484; 85025; 85610; 85730; 93005; 93306; 94664; 96372; 96374; 96375; 96376; 99285; J1171; J1200; J1650; J1885; J3010; J7030; J9999; Q0164